=== PATIENT | male | born 1990 | race Asian ===

== ENCOUNTER 2017-04-10 00:11 | Emergency (ER) ==
[~2017-04-10] VITALS: Ht 167.6 cm; Wt 64.4 kg
[2017-06-08] MEDS ORDERED: NO MEDICATIONS (23:43)
[2017-06-09] MEDS ORDERED: AUGMENTIN PO (10:54)
[2017-06-09] MEDS ORDERED: HYDROCODON-ACE1 EAC9 PO (10:54)
== END 2017-04-10 10:07 | disposition home or self-care (01) ==
LOC: CED 00:11
DX: Z53.21 Procedure and treatment not carried out due to patient leaving prior to being seen by health care provider (principal)